=== PATIENT | male | born 1970 | race Caucasian/White ===

== ENCOUNTER 2021-12-11 16:32 | Emergency (ER) | payer SELFPAY ==
[~2021-12-11] VITALS: Ht 182.9 cm; Wt 99.8 kg
--- NOTE | 2021-12-11 17:06 | NUR ---
at bedside to examine pt.
[2021-12-11] MEDS ORDERED: KETOROLAC TROMETHAMINE 30 MG INJ ONE (17:13)
[2021-12-11] MEDS ORDERED: IV NORMAL SALINE 1000 ML BAG IV ONE ×2 (17:15→18:00)
[2021-12-11] MEDS ORDERED: KETOROLAC TROMETHAMINE 30 MG INJ IVP ONE (17:15)
[2021-12-11 17:32] LABS: HEMATOCRIT 42.3 % (36.7-47.1); MEAN CORPUSCULAR HEMOGLOBIN 28.5 uug (23.8-33.4); MEAN CORPUSCULAR VOLUME 85.2 fL (73.0-96.2); PLATELET COUNT (AUTO) 257 K/uL (152-348)
[2021-12-11 17:41] LABS: CREATININE 0.9 mg/dL (0.6-1.3); POTASSIUM 4.3 mmol/L (3.5-5.1)
[2021-12-11 17:46] LABS: BILIRUBIN,DIRECT 0.2 mg/dL (0.0-0.2); BILIRUBIN,TOTAL 0.6 mg/dL (0.2-1.0); TOTAL PROTEIN, SERUM 7.6 g/dL (6.4-8.2)
[2021-12-11] MEDS ORDERED: MORPHINE SULFATE 4 MG/1 ML DISP.SYRIN ONE (17:49)
[2021-12-11] MEDS ORDERED: ONDANSETRON 4 MG/2 ML VIAL ONE (17:50)
[2021-12-11] MEDS ORDERED: MORPHINE SULFATE 4 MG/1 ML DISP.SYRIN IV ONE (18:00)
[2021-12-11] MEDS ORDERED: ONDANSETRON 4 MG/2 ML VIAL IV ONE (18:00)
[2021-12-11 18:37] LABS: *BILIRUBIN,URIN NEGATIVE (NEGATIVE); *CLARITY,URINE CLEAR (CLEAR); *COLOR,URINE LIGHT YELLOW (YELLOW); *KETONES,URINE NEGATIVE (NEGATIVE); *UROBILINOGEN,URINE 0.2 E.U./dl (NORMAL); LEUKOCYTE ESTERASE ,URINE NEGATIVE (NEGATIVE); NITRITE, URINE NEGATIVE (NEGATIVE); UGLUCOSE NEGATIVE (NEGATIVE)
[2021-12-11 18:41] LABS: *BLOOD, URINE TRACE (NEGATIVE)
--- NOTE | 2021-12-11 19:02 | NUR ---
report given to Lisa Martinez.
--- NOTE | 2021-12-11 19:03 | NUR ---
RECEIVED REPORT FROM BREE TIERNEY. PT NOTED TO BE IN BED, NO SOB OR LABORED BREATHING. DENIES ANY PAIN/DISCOMFORT. A/O X4.
--- NOTE | 2021-12-11 19:50 | NUR ---
Patient eloped from facility. Was last seen around 1929, pt ambulated to restroom with steady gait. Attempted to call pt's phone number at [phone], no answer. ER physician Dr. Julio Berry notified.
--- NOTE | 2021-12-11 19:52 | NUR ---
SECURITY CALLED AND NOTIFIED ABOUT PT, SECURITY DID NOT SEE ANYONE LEAVE FACILITY PREMISES.
--- NOTE | 2021-12-11 19:55 | NUR ---
Called patient's phone number he provided in the intake form multiple times and left several message and was unable to get a hold of patient.
--- NOTE | 2021-12-11 19:59 | NUR ---
Called patient's phone again and a person picked up and stated "You have the wrong number, I am not Clint and I don't live in [facility]."
--- NOTE | 2021-12-11 20:34 | NUR ---
Called [facility] non emergency hotline and justinkme to size roller operator [phone] and instructed me to call [facility] at .
--- NOTE | 2021-12-11 20:54 | NUR ---
Called [facility] and spoke to roll press operator [phone] and gave patient info. Music Therapist states that address did not match the street. I check with sample clerk if patient provided photo ID but patient did not provide any ID.
[2021-12-11 23:43] LABS: BACTERIA,URINE NONE SEEN /HPF (NONE SEEN); RBC,URINE 0-3 /HPF (0-3); SQUAMOUS EPITHELIAL CELL,UR FEW /HPF (NONE SEEN); WBC,URINE 0-3 /HPF (0-3)
== END 2021-12-11 21:00 | disposition left against medical advice (07) ==
LOC: ER 16:41
DX: N20.0 Calculus of kidney (principal); Z82.49 Family history of ischemic heart disease and other diseases of the circulatory system; Z87.442 Personal history of urinary calculi
CPT/HCPCS: 36415; 76770; 80048; 80076; 81001; 85025; 96361; 96374; 96375; 99284; J1885; J2270; J2405; A4663